=== PATIENT | female | born 1965 | race Hispanic/Latino ===

== ENCOUNTER 2017-01-07 14:04 | Emergency (ER) | payer OTHER ==
[2017-01-07 14:18] VITALS: BMI 32.9
[2017-01-07 14:30] VITALS: BP 126/68; PULSE 64; RESP 18; TEMP 98.8; O2SAT 97
--- NOTE | 2017-01-07 14:34 | ED PDOC ---
Arrival/HPI - General Chief Complaint: Trauma Time Seen by Provider: 01/07/17 14:17 Historian: Patient - History of Present Illness Narrative History of Present Illness (Text): 01/07/17 14:32 51yo female with no PMHx present with complaint of left forearm pain s/p trauma 5days ago. States she hit the forearm are against a wall on Tuesday. Pain started s/p and she applied ice to the area without relieve. States she saw her PMD yesterday and was advised to get xray of the area. She did not take any analgesic. Denies weakness, any other complaint. Past Medical History - Provider Review Nursing Documentation Reviewed: Yes - Infectious Disease Hx of Infectious Diseases: None - Tetanus Immunization Tetanus Immunization: Unknown - Past Medical History Past Medical History: No Previous - Cardiac Hx Hypertension: Yes Other/Comment: mitral valve regurgitation - Psychiatric Hx Substance Use: No - Past Surgical History Past Surgical History: No Previous - Surgical History Other/Comment: L eye cyst remove - Anesthesia Hx Anesthesia Reactions: No Hx Malignant Hyperthermia: No - Suicidal Assessment Feels Threatened In Home Enviroment: No Family/Social History - Physician Review Nursing Documentation Reviewed: Yes Family/Social History: Unknown Family HX Smoking Status: Never Smoked Hx Alcohol Use: Yes Frequency of alcohol use: Socially Hx Substance Use: No Hx Substance Use Treatment: No Allergies/Home Meds Allergies/Adverse Reactions: Allergies No Known Allergies Allergy (Verified 07/25/14 01:56) Review of Systems - Physician Review All systems were reviewed & negative as marked: Yes - Review of Systems Constitutional: Normal Eyes: Normal ENT: Normal Respiratory: Normal Cardiovascular: Normal Gastrointestinal: Normal Genitourinary Female: Normal Musculoskeletal: Arthralgias (Left forearm) Skin: Normal Neurological: Normal Endocrine: Normal Hemo/Lymphatic: Normal Psychiatric: Normal Physical Exam Vital Signs Reviewed: Yes Vital Signs Temp Pulse Resp BP Pulse Ox 01/07/17 14:04 98.8 F 64 18 126/68 97 Temperature: Afebrile Blood Pressure: Normal Pulse: Regular Respiratory Rate: Normal Appearance: Positive for: Well-Appearing, Non-Toxic, Comfortable Pain Distress: None Mental Status: Positive for: Alert and Oriented X 3 - Systems Exam Head: Present: Atraumatic, Normocephalic Pupils: Present: PERRL Extroacular Muscles: Present: EOMI Conjunctiva: Present: Normal Mouth: Present: Moist Mucous Membranes Neck: Present: Normal Range of Motion Respiratory/Chest: Present: Clear to Auscultation, Good Air Exchange. No: Respiratory Distress, Accessory Muscle Use Cardiovascular: Present: Regular Rate and Rhythm, Normal S1, S2. No: Murmurs Abdomen: Present: Normal Bowel Sounds. No: Tenderness, Distention, Peritoneal Signs Back: Present: Normal Inspection Upper Extremity: Present: Normal ROM, NORMAL PULSES, Tenderness (Focal tenderness over focal mid left forearm with overlaying ecchymosis), Neurovascularly Intact, Capillary Refill < 2s. No: Cyanosis, Edema, Swelling, Erythema, Temperature Abnormalties, Deformity Lower Extremity: Present: Normal Inspection. No: Edema Neurological: Present: GCS=15, CN II-XII Intact, Speech Normal Skin: Present: Warm, Dry, Normal Color. No: Rashes Psychiatric: Present: Alert, Oriented x 3, Normal Insight, Normal Concentration Medical Decision Making ED Course and Treatment: 01/07/17 15:00 left forearm - No acute fracture noted Result was DW the pt. Referred to her PMD. TRT ED for any new or worsening symptoms - RAD Interpretation Radiology Orders: 01/07/17 14:30 FOREARM LEFT [RAD] Stat Disposition/Present on Arrival - Present on Arrival Any Indicators Present on Arrival: No History of DVT/PE: No History of Uncontrolled Diabetes: No Urinary Catheter: No History of Decub. Ulcer: No History Surgical Site Infection Following: None - Disposition Have Diagnosis and Disposition been Completed?: Yes Diagnosis: Arm pain Disposition: HOME/ ROUTINE Disposition Time: 15:00 Patient Plan: Discharge Condition: STABLE Additional Instructions: Follow up with your doctor Return to ED for any new or worsening symptoms Prescriptions: Ibuprofen [Motrin Tab] 600 mg PO Q6 #20 tab Referrals: Moises Burrell III, MD [Medical Doctor] - Follow up with primary
--- NOTE | 2017-01-07 15:00 | RAD ---
PROCEDURE: Radiographs of the Left Forearm HISTORY: arm pain s/p trauma COMPARISON: None available. TECHNIQUE: Frontal and lateral views obtained. FINDINGS: BONES: No fracture or destructive lesion. JOINT SPACES: Unremarkable. OTHER FINDINGS: None. IMPRESSION: Unremarkable radiographs of the left forearm.
== END 2017-01-07 15:30 | disposition home or self-care (01) ==
LOC: ED 14:04
DX: M79.602 Pain in left arm (principal)

== ENCOUNTER 2017-05-25 13:58 | Emergency (ER) | payer OTHER ==
[2017-05-25 13:58] VITALS: BMI 32.9
[2017-05-25 14:10] VITALS: TEMP 97.8
[2017-05-25 14:29] VITALS: RESP 18
[2017-05-25 14:50] LABS: URINE BILIRUBIN NEGATIVE (NEGATIVE); URINE BLOOD TRACE-INTACT (NEGATIVE); URINE GLUCOSE (UA) NEGATIVE (NEGATIVE); URINE KETONE NEGATIVE (NEGATIVE); URINE LEUKOCYTE ESTERASE NEGATIVE Leu/uL (NEGATIVE); URINE PROTEIN NEGATIVE mg/dL (<30 mg/dL); URINE UROBILINOGEN 0.2 E.U./dL (<1 E.U./dL)
[2017-05-25] MEDS: Sodium Chloride 0.9% 1,000 ML IV SCH (15:03)
[2017-05-25 15:06] LABS: URINE APPEARANCE CLEAR (CLEAR); URINE COLOR YELLOW (YELLOW); URINE RBC 0 - 2 /hpf (0-2)
[2017-05-25 15:07] LABS: URINE BACTERIA TRACE (NEG); URINE EPITHELIAL CELLS 0 - 2 /hpf (0-5); URINE WBC NEGATIVE /hpf (0-6)
--- NOTE | 2017-05-25 15:30 | ED PDOC ---
Arrival/HPI - General Historian: Patient, Spouse - General Chief Complaint: Back Pain Time Seen by Provider: 05/25/17 14:00 - History of Present Illness Narrative History of Present Illness (Text): 05/25/17 14:45 51 F PMHx of cholelithiasis and nephrolithiasis presents with 24 hour duration of R sided, sharp, non-radiating, flank pain of 8/10 severity at its worst. Patient states that she was walking her dog yesterday when the pain started, and that nothing makes the pain better or worse. Patient further admits to L sided back pain, which she states is 2/2 her compensating for her right sided flank pain. Patient denies any f/ch/n/v/d. Patient states that the pain feels similar to her last bout of nephrolithiasis, but without the n/v/d. Pt denies sob/cp/lu/dizziness. No further complaints PMD: Condo Uro: Susi (Leonardo French) Past Medical History - Provider Review Nursing Documentation Reviewed: Yes - Travel History Have you recently traveled outside [place] w/in the past 3 mons?: No - Infectious Disease Hx of Infectious Diseases: None - Tetanus Immunization Tetanus Immunization: Unknown - Past Medical History Past Medical History: No Previous - Cardiac Hx Cardiac Disorders: Yes Hx Hypertension: Yes Other/Comment: mitral valve regurgitation - Pulmonary Hx Respiratory Disorders: No - Neurological Hx Neurological Disorder: No - Renal Hx Renal Disorder: Yes Hx Kidney Stones: Yes - Endocrine/Metabolic Hx Endocrine Disorders: No - Hematological/Oncological Hx Blood Disorders: No - Integumentary Hx Dermatological Disorder: No - Musculoskeletal/Rheumatological Hx Musculoskeletal Disorders: No - Gastrointestinal Hx Gastrointestinal Disorders: No - Genitourinary/Gynecological Hx Genitourinary Disorders: No - Psychiatric Hx Psychophysiologic Disorder: No Hx Substance Use: No - Past Surgical History Past Surgical History: No Previous - Surgical History Other/Comment: L eye cyst remove - Anesthesia Hx Anesthesia: Yes Hx Anesthesia Reactions: No Hx Malignant Hyperthermia: No - Suicidal Assessment Feels Threatened In Home Enviroment: No Family/Social History - Physician Review Nursing Documentation Reviewed: Yes Family/Social History: Unknown Family HX Smoking Status: Never Smoked Hx Alcohol Use: Yes Hx Substance Use: No Hx Substance Use Treatment: No Allergies/Home Meds Allergies/Adverse Reactions: Allergies No Known Allergies Allergy (Verified 07/25/14 01:56) Home Medications: Home Meds Medication Instructions Recorded Confirmed Propranolol [Inderal] 10 mg PO TID 05/25/17 05/25/17 Review of Systems - Physician Review All systems were reviewed & negative as marked: Yes - Review of Systems Constitutional: Normal. absent: Fatigue, Weight Change, Fevers Eyes: Normal. absent: Vision Changes, Photophobia, Eye Pain ENT: Normal. absent: TMJ Pain, Voice Changes, Sore Throat Respiratory: Normal. absent: SOB, Cough Cardiovascular: Normal. absent: Chest Pain, Calf Pain, ALAS Gastrointestinal: Normal. absent: Abdominal Pain, Stool Changes, Constipation, Diarrhea, Nausea, Vomiting Genitourinary Female: Normal. absent: Dysuria, Frequency, Hematuria Musculoskeletal: Other (CVA Tenderness) Skin: Normal. absent: Rash, Pruritis, Skin Lesions Neurological: Normal. absent: Headache, Dizziness Endocrine: Normal. absent: Diaphoresis, Polyuria Hemo/Lymphatic: Normal. absent: Adenopathy, Easy Bleeding Psychiatric: Normal. absent: Anxiety Physical Exam Vital Signs Reviewed: Yes Temperature: Afebrile Blood Pressure: Normal Pulse: Regular Respiratory Rate: Normal Appearance: Positive for: Well-Appearing, Non-Toxic, Comfortable Pain Distress: None Mental Status: Positive for: Alert and Oriented X 3 - Systems Exam Head: Present: Atraumatic, Normocephalic Pupils: Present: PERRL Extroacular Muscles: Present: EOMI Conjunctiva: Present: Normal Mouth: Present: Moist Mucous Membranes Pharnyx: Present: Normal. No: ERYTHEMA, EXUDATE, TONSILS ENLARGED Nose (External): Present: Atraumatic. No: Abrasion, Contusion Nose (Internal): Present: Normal Inspection. No: Rhinorrhea, Septal Deviation, Epistaxis Neck: Present: Normal Range of Motion. No: MIDLINE TENDERNESS Respiratory/Chest: Present: Clear to Auscultation, Good Air Exchange. No: Respiratory Distress, Accessory Muscle Use Cardiovascular: Present: Regular Rate and Rhythm, Normal S1, S2. No: Murmurs Abdomen: Present: Normal Bowel Sounds. No: Tenderness, Distention, Peritoneal Signs Back: Present: CVA Tenderness. No: Midline Tenderness, Paraspinal Tenderness, Pain with Leg Raise Upper Extremity: Present: Normal Inspection. No: Cyanosis, Edema Lower Extremity: Present: Normal Inspection. No: Edema Neurological: Present: GCS=15, CN II-XII Intact, Speech Normal Skin: Present: Warm, Dry, Normal Color. No: Rashes Psychiatric: Present: Alert, Oriented x 3, Normal Insight, Normal Concentration , Normal Affect, Normal Mood Medical Decision Making ED Course and Treatment: Assessed 05/25/17 14:30 Impression: 51 F PMHx nephrolithiasis cholelithiasis presents with CVA Tenderness Plan: - Pain control with Toradol - Bedside Renal U/s: - UA: - IVF - Reassess Reassessed 05/25/17 15:50 - Pain better; - UA shows minimal trace blood - Renal U/s shows no hydronephrosis - Ordered CT Scan Reassessed 05/25/17 16:15 - CT Scan: no acute findings Reassessed 05/25/17 17:00 - Pt's pain is gone - Given a script for Naproxen 500 bid for 5 days - Given a script for Flexeril 5 daily for 5 days - Pt advised about the sedative effects of Flexeril (Leonardo French) Per my history the pts pain is positional and reproducible on exam. susp MSK back pain. no red flag sx. pt improved sig w rx here. comfortable w plan for rx at home, f/u, rtr. (Florencio Saucedo) - Lab Interpretations Lab Results: Lab Results 05/25/17 14:25: Urine Color Yellow, Urine Appearance Clear, Urine pH 6.0, Ur Specific [place] <= 1.005, Urine Protein Negative, Urine Glucose (UA) Negative, Urine Ketones Negative, Urine Blood Trace-intact H, Urine Nitrate Negative, Urine Bilirubin Negative, Urine Urobilinogen 0.2, Ur Leukocyte Esterase Negative , Urine RBC 0 - 2, Urine WBC Negative, Ur Epithelial Cells 0 - 2, Urine Bacteria Trace - RAD Interpretation Radiology Orders: 05/25/17 15:37 ABD & PELVIS W/O PO OR IV CONT [CT] Stat - Medication Orders Current Medication Orders: Discontinued Medications Sodium Chloride (Sodium Chloride 0.9%) 1,000 mls @ 100 mls/hr IV .Q10H JOSE G Last Admin: 05/25/17 15:03 Dose: 100 mls/hr Ketorolac Tromethamine (Toradol) 10 mg IVP STAT STA Stop: 05/25/17 14:41 Last Admin: 05/25/17 15:03 Dose: 10 mg Disposition/Present on Arrival - Present on Arrival Any Indicators Present on Arrival: No History of DVT/PE: No History of Uncontrolled Diabetes: No Urinary Catheter: No History of Decub. Ulcer: No History Surgical Site Infection Following: None - Disposition Have Diagnosis and Disposition been Completed?: Yes Disposition Time: 16:45 Patient Plan: Discharge - Disposition Diagnosis: Musculoskeletal back pain Disposition: HOME/ ROUTINE Condition: IMPROVED Additional Instructions: Ms. Stanton, thank you for letting us take care of you today. Your providers were Dr. Saucedo and Dr. French. You were treated for musculoskeletal pain. The emergency medical care you received today was directed at your acute symptoms. If you were prescribed any medication, please fill it and take as directed. It may take several days for your symptoms to resolve. Return to the Emergency Department if your symptoms worsen, do not improve, or if you have any other problems. Please contact your doctor or call one of the physicians/clinics you have been referred to that are listed on the Patient Visit Information form that is included in your discharge packet. Bring any paperwork you were given at discharge with you along with any medications you are taking to your follow up visit. Our treatment cannot replace ongoing medical care by a primary care provider (PCP) outside of the emergency department. Thank you for allowing the [facility] team to be part of your care today. If you had an X-Ray or CT scan: A Radiologist will review the ED reading if any change in treatment is needed we will contact you. If you had a blood, urine, or wound culture: It will take several days for the results, if any change in treatment is needed we will contact you. If you had an STI test: It will take 48 hours for the results. Please call after 1 week if you have not heard back. Prescriptions: Naproxen 500 mg PO BID 5 Days Referrals: Chivo Oliveira MD [Primary Care Provider] - Follow up with primary Forms: [employer] (Swiss)
--- NOTE | 2017-05-25 16:13 | CT ---
PROCEDURE: CT Abdomen and Pelvis without intravenous contrast HISTORY: r/o kidney stone COMPARISON: None. TECHNIQUE: Without contrast.. Contrast Dose: Radiation dose: Total exam DLP = 694 mGy-cm. This CT exam was performed using one or more of the following dose reduction techniques: Automated exposure control, adjustment of the mA and/or kV according to patient size, and/or use of iterative reconstruction technique. FINDINGS: LOWER THORAX: Unremarkable. LIVER: Unremarkable. No gross lesion or ductal dilatation. GALLBLADDER AND BILE DUCTS: Gallstones. No acute inflammation PANCREAS: Unremarkable. No gross lesion or ductal dilatation. SPLEEN: Unremarkable. ADRENALS: Unremarkable. No mass. KIDNEYS AND URETERS: Unremarkable. No hydronephrosis. No solid mass. VASCULATURE: Unremarkable. No aortic aneurysm. BOWEL: Unremarkable. No obstruction. No gross mural thickening. APPENDIX: Unremarkable. Normal appendix. PERITONEUM: Unremarkable. No free fluid. No free air. LYMPH NODES: Unremarkable. No enlarged lymph nodes. BLADDER: Unremarkable. REPRODUCTIVE: Unremarkable. BONES: No acute fracture. OTHER FINDINGS: None. IMPRESSION: No acute findings
[2017-05-25 16:30] VITALS: BP 105/60; PULSE 63
[2017-05-25 16:59] VITALS: O2SAT 98
== END 2017-05-25 16:58 | disposition home or self-care (01) ==
LOC: ED 13:58
DX: M54.9 Dorsalgia, unspecified (principal); I10 Essential (primary) hypertension
CPT/HCPCS: 74176; 81001; 96374; 99283; J1885; J7040

== ENCOUNTER 2018-08-17 07:21 | Emergency (ER) | payer OTHER ==
[2018-08-17 07:46] VITALS: BMI 33.1
[2018-08-17 07:47] VITALS: RESP 18; O2SAT 98
[2018-08-17] MEDS ORDERED: Sodium Chloride 0.9% 1,000 ML IV STA (08:09)
--- NOTE | 2018-08-17 08:33 | ED PDOC ---
Arrival/HPI - General Chief Complaint: Allergic Reaction Time Seen by Provider: 08/17/18 07:41 Historian: Patient - History of Present Illness Narrative History of Present Illness (Text): 08/17/18 08:24 52 year old female w/ PMH of A-fib (s/p ablation on 08/11/18)presents to the emergency department with hives. She states she had her ablation procedure done, and hand 2 very strong bandages on her arms and was unable to remove the bandages for a few days after her discharge. The patient states when she finally removed the banadages, she noted erythema and pruritus near her antecubital fossa as well as under her breasts, back and on her neck. Patient informs her sister has a latex allergy and thinks she might have one as well. She reports changing her shampoo and deodorant in the days post-surgery, but is unsure of a specific trigger. Patient states she has taken 2 Benadryl tablets last night, and appled cortisone ointment to her back today. Patient denies any fevers, chills, headache, dizziness, chest pain, shortness of breath, cough, abdominal pain, nausea, vomiting, diarrhea, back pain, neck pain, urinary/bowel changes, or any other complaint. PMD: Dr. Dockery Supervisor Pipeline: Dr. Paulino Time/Duration: < week Symptom Onset: Gradual Symptom Course: Unchanged Context: Home Past Medical History - Provider Review Nursing Documentation Reviewed: Yes - Travel History Have you recently traveled outside [place] w/in the past 3 mons?: No - Infectious Disease Hx of Infectious Diseases: None - Tetanus Immunization Tetanus Immunization: Unknown - Reproductive Menopause: Yes - Past Medical History Past Medical History: No Previous - Cardiac Hx Cardiac Disorders: Yes Hx Atrial Fibrillation: Yes Hx Pacemaker: No - Pulmonary Hx Respiratory Disorders: No - Neurological Hx Paralysis: No - Renal Hx Renal Disorder: Yes Hx Kidney Stones: Yes - Endocrine/Metabolic Hx Endocrine Disorders: No - Hematological/Oncological Hx Blood Transfusions: No - Integumentary Hx Dermatological Disorder: No - Musculoskeletal/Rheumatological Hx Musculoskeletal Disorders: No - Gastrointestinal Hx Gastrointestinal Disorders: No - Genitourinary/Gynecological Hx Genitourinary Disorders: No - Psychiatric Hx Emotional Abuse: No Hx Physical Abuse: No Hx Substance Use: No - Past Surgical History Past Surgical History: No Previous - Surgical History Other/Comment: ablation - Anesthesia Hx Anesthesia: Yes Hx Anesthesia Reactions: No (NEVER HAD ANESTHESIA) Hx Malignant Hyperthermia: No - Suicidal Assessment Feels Threatened In Home Enviroment: No Family/Social History - Physician Review Nursing Documentation Reviewed: Yes Family/Social History: No Known Family HX Smoking Status: Never Smoked Hx Alcohol Use: No Hx Substance Use: No Hx Substance Use Treatment: No Allergies/Home Meds Allergies/Adverse Reactions: Allergies Penicillins Allergy (Verified 08/17/18 08:01) RASH AND NAUSEA Home Medications: Home Meds Medication Instructions Recorded Confirmed Propranolol [Inderal] 10 mg PO TID 05/25/17 08/17/18 Apixaban [Eliquis] 5 mg PO BID 01/17/18 08/17/18 Review of Systems - Physician Review All systems were reviewed & negative as marked: Yes - Review of Systems Constitutional: absent: Fevers, Night Sweats Respiratory: absent: SOB, Cough Cardiovascular: absent: Chest Pain Gastrointestinal: absent: Abdominal Pain, Diarrhea, Nausea, Vomiting Musculoskeletal: absent: Back Pain, Neck Pain Skin: Rash Neurological: absent: Headache, Dizziness Physical Exam Vital Signs Reviewed: Yes Vital Signs Temp Pulse Resp BP Pulse Ox 08/17/18 07:46 98.0 F 64 18 129/84 98 Temperature: Afebrile Blood Pressure: Normal Pulse: Regular Respiratory Rate: Normal Appearance: Positive for: Well-Appearing, Non-Toxic, Comfortable Pain Distress: None Mental Status: Positive for: Alert and Oriented X 3 - Systems Exam Head: Present: Atraumatic, Normocephalic Pupils: Present: PERRL Extroacular Muscles: Present: EOMI Conjunctiva: Present: Normal Mouth: Present: Moist Mucous Membranes Neck: Present: Normal Range of Motion Respiratory/Chest: Present: Clear to Auscultation, Good Air Exchange. No: Respiratory Distress, Accessory Muscle Use, Wheezes, Decreased Breath Sounds, Tachypneic Cardiovascular: Present: Regular Rate and Rhythm, Normal S1, S2. No: Murmurs Abdomen: No: Tenderness, Distention, Peritoneal Signs Back: Present: Normal Inspection Upper Extremity: Present: Normal Inspection. No: Cyanosis, Edema Lower Extremity: Present: Normal Inspection. No: Edema Neurological: Present: GCS=15, CN II-XII Intact, Speech Normal Skin: Present: Warm, Dry, Rashes (Urticarial blanching rash on neck, back, and bilateral anterior cubital fossa of upper extremities ) Psychiatric: Present: Alert, Oriented x 3, Normal Insight, Normal Concentration Medical Decision Making ED Course and Treatment: 08/17/18 08:39 Impression: 52 year old female presents with hives. Plan: --IV Fluids -- Benadryl -- Pepcid -- Solumedrol -- Reassess and disposition Prior Visits: Notes and results from previous visits were reviewed. Progress Notes: 08/17/18 09:12 Patient reassessed and feels better. She reports having an treatment counselor she plans on following up with. Importance of avoiding scented creams and application of a rtificial dyes stressed to patient who demonstrates understanding. Scripts provided. - Medication Orders Current Medication Orders: Sodium Chloride (Sodium Chloride 0.9%) 1,000 mls @ 999 mls/hr IV .Q1H1M STA Stop: 08/17/18 09:09 Discontinued Medications Diphenhydramine HCl (Benadryl) 50 mg PO STAT STA Stop: 08/17/18 08:10 Methylprednisolone (Solu-Medrol) 125 mg IVP STAT STA Stop: 08/17/18 08:10 - Scribe Statement The provider has reviewed the documentation as recorded by the Scribe Jamel Maddox Provider Scribe Attestation: All medical record entries made by the Scribe were at my direction and personally dictated by me. I have reviewed the chart and agree that the record accurately reflects my personal performance of the history, physical exam, medical decision making, and the department course for this patient. I have also personally directed, reviewed, and agree with the discharge instructions and disposition. Disposition/Present on Arrival - Present on Arrival Any Indicators Present on Arrival: No History of DVT/PE: No History of Uncontrolled Diabetes: No Urinary Catheter: No History of Decub. Ulcer: No History Surgical Site Infection Following: None - Disposition Have Diagnosis and Disposition been Completed?: Yes Diagnosis: Urticaria, Allergic reaction Disposition: HOME/ ROUTINE Disposition Time: 09:14 Patient Plan: Discharge Condition: IMPROVED Discharge Instructions (ExitCare): Hives (DC) Print Language: MARTIN[place]QU[place]IS Additional Instructions: Please follow up with the treatment counselor in 1-2 days Please take your steroid taper as prescribed. All medical record entries made by the Scribe were at my direction and personally dictated by me. I have reviewed the chart and agree that the record accurately reflects my personal performance of the history, physical exam, medical decision making, and the department course for this patient. I have also personally directed, reviewed, and agree with the discharge instructions and disposition. Prescriptions: Methylprednisolone [Medrol Dose Pack (21 tabs)] 4 mg PO DAILY #21 mg Referrals: Tyron Griggs DO [Medical Doctor] - Follow up with primary Ester Stringer MD [Medical Doctor] - Follow up with primary Forms: [employer] [facility] (Thai)
[2018-08-17 09:59] VITALS: BP 105/58; PULSE 58; TEMP 98
== END 2018-08-17 09:59 | disposition home or self-care (01) ==
LOC: ED 07:21
DX: L50.0 Allergic urticaria (principal)
CPT/HCPCS: 96361; 96374; 96375; 99283; J2930; J7030